=== PATIENT | male | born 1965 | race Caucasian/White ===

== ENCOUNTER → 2022-09-25 15:50 | Outpatient (BNVA) | payer OTHER, SELFPAY | PROVIDERS: PCP Family Medicine; Visit Provider Family Medicine | DX: Z90.3 Acquired absence of stomach [part of] (principal); Z13.6 Encounter for screening for cardiovascular disorders; Z13.9 Encounter for screening, unspecified | CPT/HCPCS: 80053; 80061; 82306; 82607; 82746; 83735; 84443; 84630; 85025 ==

== ENCOUNTER 2022-11-15 16:42 | Outpatient (CLI) | payer OTHER, SELFPAY ==
[2022-11-15 18:12] LABS: 25 Hydroxy Vitamin D 25 ng/mL (30-100)
== END 2022-11-15 16:43 | disposition home or self-care (01) ==
LOC: LAB 16:45
PROVIDERS: PCP Family Medicine; Visit Provider Family Medicine
DX: R79.89 Other specified abnormal findings of blood chemistry (principal)
CPT/HCPCS: 82306

== ENCOUNTER → 2023-09-25 10:38 | Outpatient (BNVA) | payer OTHER, SELFPAY | PROVIDERS: PCP Family Medicine; Visit Provider Family Medicine | DX: Z90.3 Acquired absence of stomach [part of] (principal); E55.9 Vitamin D deficiency, unspecified | CPT/HCPCS: 80053; 80061; 82306; 82607; 83036; 83735; 84134; 84443; 84630; 85025 ==

== ENCOUNTER → 2024-07-15 13:25 | Outpatient (BNVA) | payer OTHER, SELFPAY | PROVIDERS: PCP Family Medicine; Visit Provider Family Medicine | DX: Z23 Encounter for immunization (principal); Z90.3 Acquired absence of stomach [part of]; R79.89 Other specified abnormal findings of blood chemistry; E55.9 Vitamin D deficiency, unspecified; R20.2 Paresthesia of skin; D64.9 Anemia, unspecified | CPT/HCPCS: 80053; 80061; 82306; 82607; 82728; 83540; 83735; 84443; 85025 ==

== ENCOUNTER 2025-06-19 05:00 | Outpatient (CLI) | payer OTHER, SELFPAY | END 2025-06-19 05:01 | disposition home or self-care (01) | LOC: SPT 07-01 08:32 | PROVIDERS: PCP Family Medicine; Visit Provider Podiatrist Foot & Ankle Surgery | DX: Z46.89 Encounter for fitting and adjustment of other specified devices (principal); M84.374D Stress fracture, right foot, subsequent encounter for fracture with routine healing | CPT/HCPCS: L4361 ==

== ENCOUNTER 2025-06-23 13:04 | Outpatient (CLI) | payer OTHER, SELFPAY ==
--- NOTE | 2025-06-23 13:11 | XR_ITS ---
WS: [id number] Left foot, 3 views, 06/23/2025 Clinical Data: left foot injury Comparison: None. Findings: No fractures or dislocations are seen. No bone destruction or erosion is noted. The joint spaces and soft tissues are normal. There is a plantar spur. XR/XR foot LT min 3V* [id number] Impression: Negative left foot.
== END 2025-06-23 13:05 | disposition home or self-care (01) ==
PROVIDERS: PCP Family Medicine; Visit Provider Family Medicine
DX: S99.922A Unspecified injury of left foot, initial encounter (principal); X58.XXXA Exposure to other specified factors, initial encounter; M77.32 Calcaneal spur, left foot
CPT/HCPCS: 73630

== ENCOUNTER → 2025-06-24 13:25 | Outpatient (BNVA) | payer OTHER, SELFPAY | PROVIDERS: PCP Family Medicine; Visit Provider Podiatrist Foot & Ankle Surgery | DX: S90.32XA Contusion of left foot, initial encounter (principal); W22.8XXA Striking against or struck by other objects, initial encounter | CPT/HCPCS: 73630 ==

== ENCOUNTER → 2025-07-08 14:51 | Outpatient (BNVA) | payer OTHER, SELFPAY | PROVIDERS: PCP Family Medicine; Visit Provider Podiatrist Foot & Ankle Surgery | DX: S90.32XA Contusion of left foot, initial encounter (principal); X58.XXXA Exposure to other specified factors, initial encounter | CPT/HCPCS: 73630 ==